=== PATIENT | male | born 1955 | race Caucasian/White ===

== ENCOUNTER 2019-04-14 12:30 | Emergency (ER) | payer OTHER ==
[~2019-04-14] VITALS: Ht 165.1 cm; Wt 67.1 kg
[2019-04-14] MEDS ORDERED: DILANTIN100 MG PO (12:54)
[2019-04-14] MEDS ORDERED: KEPPRA500 MG PO (12:55)
== END 2019-04-15 09:37 | disposition home or self-care (01) ==
LOC: ER 12:30
DX: G40.801 Other epilepsy, not intractable, with status epilepticus (principal)